=== PATIENT | male | born 1975 | race Caucasian/White ===

== ENCOUNTER 2020-03-13 17:09 | Emergency (ER) | payer BC ==
--- NOTE | 2020-03-13 17:33 | ER Document Report ---
ED Medical Screen (RME) - General Chief Complaint: Laceration Stated Complaint: HAND LACERATION Time Seen by Provider: 03/13/20 17:26 Mode of Arrival: Ambulatory Information source: Patient Notes: 44-year-old male presents with laceration to the left hand webspace in between the index finger and thumb. Reports he cut himself with a box car loader. Reports his immunizations are up-to-date. Hand is wrapped. Patient did contact Dr. 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 Patient reports that he just would like to get it sewn up as quick as possible because his daughter is waiting in the car. I have greeted and performed a rapid initial assessment of this patient. A comprehensive ED assessment and evaluation of the patient, analysis of test results and completion of the medical decision making process will be conducted by additional ED providers. - Related Data Allergies/Adverse Reactions: Penicillins Allergy (Verified 03/13/20 17:20) Hives Home Medications: denies Past Medical History - Social History Chew tobacco use (# tins/day): No Frequency of alcohol use: Social Drug Abuse: None Physical Exam - Vital signs Vitals: Temp Pulse Resp BP Pulse Ox 98.1 F 64 16 161/93 H 97 03/13/20 17:12 03/13/20 17:12 03/13/20 17:12 03/13/20 17:12 03/13/20 17:12 Course - Vital Signs Vital signs: Temp Pulse Resp BP Pulse Ox 98.1 F 64 16 161/93 H 97 03/13/20 17:20 03/13/20 17:12 03/13/20 17:12 03/13/20 17:12 03/13/20 17:12
[2020-03-13] MEDS ORDERED: LIDOCAINE 1% INJ-PF (10 MG/ML) 30 ML SDV INFIL ONE (18:07)
--- NOTE | 2020-03-13 18:10 | ER Document Report ---
HPI - HPI Time Seen by Provider: 03/13/20 17:26 Pain Level: Denies Notes: RME HPI: 44-year-old male presents with laceration to the left hand webspace in between the index finger and thumb. Reports he cut himself with a supervisor mattress and boxsprings. Reports his immunizations are up-to-date. Hand is wrapped. 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 Patient reports that he just would like to get it sewn up as quick as possible because his daughter is waiting in the car. - CONSTITUTIONAL Constitutional: DENIES: Fever, Chills - REPRODUCTIVE Reproductive: DENIES: : Past Medical History - General Information source: Patient - Social History Smoking Status: Never Smoker Chew tobacco use (# tins/day): No Frequency of alcohol use: Social Drug Abuse: None Family History: Reviewed & Not Pertinent Patient has suicidal ideation: No Patient has homicidal ideation: No - Medical History Medical History: Negative Surgical Hx: Negative - Immunizations Immunizations up to date: Yes Vertical Provider Document - CONSTITUTIONAL Notes: PHYSICAL EXAMINATION: GENERAL: Well-appearing, well-nourished and in no acute distress. HEAD: Atraumatic, normocephalic. EYES: Pupils equal round extraocular movements intact, conjunctiva are normal. ENT: Nares patent NECK: Normal range of motion LUNGS: No respiratory distress Musculoskeletal: Normal range of motion NEUROLOGICAL: Normal speech, normal gait. PSYCH: Normal mood, normal affect. SKIN: laceration to the left hand webspace in between the index finger and thumb Course - Re-evaluation Re-evalutation: 03/13/20 18:16 Dr. Carlos is at bedside to perform laceration repair. Patient has an allergy to penicillin so Dr. Carlos is requesting that I place the patient on Cipro for prophylaxis for wound infection. - Vital Signs Vital signs: Temp Pulse Resp BP Pulse Ox 98.1 F 64 16 161/93 H 97 03/13/20 17:20 03/13/20 17:12 03/13/20 17:12 03/13/20 17:12 03/13/20 17:12 Discharge - Discharge Clinical Impression: Laceration Condition: Stable Disposition: HOME, SELF-CARE Additional Instructions: Laceration Care Your laceration has been sutured to keep the skin edges aligned during healing. The time of suture removal depends on the nature and location of your cut. Please follow the care instructions the doctor has outlined for you and return for further care, according to the schedule you've been given. Keep the wound and dressing clean. Unless you were told otherwise, you may shower daily, blotting the wound dry with a clean, unused towel. At other times, If the dressing gets wet or blood soaked, remove it and blot the wound dry, then reapply a new dressing. Unless you were instructed otherwise, dressings should be changed at least daily. If any signs of infection occur (swelling, redness, increasing tenderness, red streaks, tender lumps in the armpit or groin above the laceration, or fever), see the doctor immediately. Please return to the emergency department or your primary care provider in 8-10 days for suture removal. Please return earlier if you develop any signs of infection such as increased redness, swelling, foul-smelling drainage or fever. Prescriptions: Ciprofloxacin HCl [Cipro 500 mg Tablet] 500 mg PO BID #10 tablet
--- NOTE | 2020-03-13 18:38 | PDOC CONSULTATION ---
Consultation Consult Date: 03/13/20 Attending physician:: ROLANDO CAMPOS Provider Consulted: FABIANA NGUYEN Consult reason:: hand laceration History of Present Illness History of Present Illness: CAROLE MORALES is a 44 year old maleHPI: 24-year-old female presenting to the emergency department complaining of difficulty swallowing. Patient states she was eating barbecue chicken that had been pulled apart and cooked in a crockpot without bones when she felt like something became stuck in the lower throat. Patient states she tried to drink Coke milk and other items to see if she can get the food bolus to move but could not. Patient states she has still been gagging today and has not been able to eat or drink. Patient denies difficulty with speech or speaking Social History Smoking Status: Never Smoker Electronic Cigarette use?: No Family History Family History: Reviewed & Not Pertinent Parental Family History Reviewed: No Children Family History Reviewed: NA Sibling(s) Family History Reviewed.: NA Medication/Allergy Home Medications: Ciprofloxacin HCl [Cipro 500 mg Tablet] 500 mg PO BID #10 tablet 03/13/20 Allergies/Adverse Reactions: Penicillins Allergy (Verified 03/13/20 17:20) Peg Review of Systems Constitutional: ABSENT: as per HPI, anorexia, chills, fatigue, fever(s), headache(s), night sweats, weakness, weight gain, weight loss, other Eyes: ABSENT: as per HPI, visual disturbances, other Ears: ABSENT: as per HPI, hearing changes, other Nose, Mouth, and Throat: ABSENT: as per HPI, headache(s), mouth pain, sore throat, vertigo, other Breasts: ABSENT: as per HPI, other Cardiovascular: ABSENT: as per HPI, chest pain, dyspnea on exertion, edema, orthropnea, palpitations, other Respiratory: ABSENT: as per HPI, cough, dyspnea, hemoptysis, sputum, other Gastrointestinal: ABSENT: as per HPI, abdominal pain, bloating, coffee ground emesis, constipation, diarrhea, dysphagia, heartburn, hematemesis, hematochezia, melena, nausea, vomiting, other Genitourinary: ABSENT: as per HPI, difficulty urinating, dysuria, hematuria, nocturia, other Musculoskeletal: PRESENT: as per HPI Integumentary: PRESENT: as per HPI Neurological: ABSENT: as per HPI, abnormal gait, abnormal movements, abnormal speech, confusion, convulsions, dizziness, focal weakness, frequent falls, lack of coordination, memory loss, numbness, paresthesias, restless legs, syncope, tingling, tremor(s), vertigo, weakness, other Psychiatric: ABSENT: as per HPI, anxiety, depression, hallucinations, homidical ideation, suicidal ideation, other Endocrine: ABSENT: as per HPI, cold intolerance, flushing, heat intolerance, menstrual abnormalities, polydipsia, polyphagia, polyuria, other Hematologic/Lymphatic: ABSENT: as per HPI, easy bleeding, easy bruising, lymphadenopathy, other Allergic/Immunologic: ABSENT: as per HPI, seasonal rhinorrhea, other Physical Exam Vital Signs: Temp Pulse Resp BP Pulse Ox 98.1 F 64 16 161/93 H 97 03/13/20 17:20 03/13/20 17:12 03/13/20 17:12 03/13/20 17:12 03/13/20 17:12 Intake & Output 03/12/20 03/13/20 03/14/20 06:59 06:59 06:59 Weight 140.9 kg General appearance: PRESENT: no acute distress Head exam: PRESENT: normocephalic Eye exam: PRESENT: EOMI Ear exam: PRESENT: normal external ear exam Mouth exam: PRESENT: moist Neck exam: PRESENT: full ROM Respiratory exam: PRESENT: clear to auscultation aashish Cardiovascular exam: PRESENT: RRR Pulses: PRESENT: normal radial pulses, normal femoral pulses Vascular exam: PRESENT: normal capillary refill Breast: PRESENT: Normal GI/Abdominal exam: PRESENT: soft Rectal exam: PRESENT: deferred Extremities exam: PRESENT: other - 4cm laceration through deep subcutaneous tissue left 1st web space neurovasc intact Neurological exam: PRESENT: alert Skin exam: PRESENT: dry Assessment & Plan - Plan Summary Plan Summary: impression hand laceration left hand will repair in er.
[2020-03-13 18:39] VITALS: BP 131/84
--- NOTE | 2020-03-13 18:42 | Operative Report ---
Nonrecallable Operative Report DATE OF SURGERY: 03/13/20 PREOPERATIVE DIAGNOSIS: left hand laceration POSTOPERATIVE DIAGNOSIS: left hand laceration OPERATION: repair of left hand laceration SURGEON: FABIANA NGUYEN ANESTHESIA: Local TISSUE REMOVED OR ALTERED: none COMPLICATIONS: none ESTIMATED BLOOD LOSS: 3cc INTRAOPERATIVE FINDINGS: neurovasc intact. PROCEDURE: Patient suffered a 4 cm laceration to the first webspace of his left hand with a dust box worker. After appropriate timeout and site verification the procedure commenced. The left hand was prepped with a surgical scrub and then Betadine solution. After anesthetizing the edges of the wound with 1% lidocaine plain the procedure then proceeded with repairing the laceration with simple interrupted 4-0 Prolene sutures. Approximately 5 sutures were placed. Patient tolerated the procedure well there is no significant bleeding. Sterile dressing was applied which completed the procedure.
== END 2020-03-13 18:37 | disposition home or self-care (01) ==
LOC: ER 17:09
DX: S61.412A Laceration without foreign body of left hand, initial encounter (principal); W27.8XXA Contact with other nonpowered hand tool, initial encounter; Z88.0 Allergy status to penicillin
CPT/HCPCS: 99283; 12002; J3490